=== PATIENT | male | born 1965 | race African-American/Black ===

== ENCOUNTER 2017-07-18 09:00 | Inpatient (IN) | payer BC ==
[~2017-07-18] VITALS: Ht 177.8 cm; Wt 106.6 kg
--- NOTE | ~2017-07-18 | PA ---
Unit #: [id number] #: [id number] Patient: TATIANA FOURNIER [id number] [facility] [address] [place] [address] [id number] MR#: [id number] NAME: TATIANA FOURNIER. ROOM: [facility] Age: 51 Sex: M Admission Date: 07/18/2017 : 1965 Date of Assessment: 07/18/2017 Attending Physician: Isacc Mathur M.D. Admitting Physician: Isacc Mathur M.D. Primary Care Physician: Chelsea Frnaco PSYCHIATRIC ASSESSMENT IDENTIFYING INFORMATION The patient is a 51-year-old male well-known to this physician. He is admitted with positive suicidal ideation. INFORMANT(S) Patient and chart. RELIABILITY Good. CHIEF COMPLAINT None given. HISTORY OF PRESENT ILLNESS The patient is a 51-year-old male well-known to this physician. He has been treated for bipolar disorder and had been fairly stable on a combination of medications including Geodon, Lamictal, Ativan and Ambien. The patient reports that without recent precipitant, he has had worsening of mood culminating in an episode this morning when he had considered jumping from the bridge. He reports no previous suicide attempts or gestures and denies abuse of any psychoactive substances. 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 He denies recent changes in sleep or appetite. PAST PSYCHIATRIC HISTORY As above. FAMILY HISTORY Noncontributory. SOCIAL HISTORY The patient lives with his partner. He reports no use of alcohol, tobacco or street drugs. MEDICAL HISTORY The patient suffers from hypertension, low testosterone and GERD. MEDICATION HISTORY 1. Ambien CR. 2. Protonix. 3. Ativan. 4. Lamictal. 5. Geodon. Unit #: [id number] #: [id number] Patient: TATIANA FOURNIER 6. Sildenafil. 7. Testosterone. 8. Bystolic. ALLERGIES None. MENTAL STATUS EXAM At this time, reveals the patient to be an obese, male appearing his stated age. He is in no apparent physical distress at the time of examination. He is awake, alert, oriented in all spheres. His mood is dysphoric. His affect blunted. Speech is relevant and coherent. There are no gross deficits in memory or cognition noted. Intelligence is judged to be in the average range based on fund of knowledge. The patient is cooperative throughout the interview. He is currently endorsing positive suicidal ideation. He denies homicidal ideation. He denies any psychotic symptoms. His judgement and insight appear to be intact. ASSETS AND LIABILITIES Patient's assets, motivation for change. Liabilities, lack of resources. ADMITTING DIAGNOSES 1. Bipolar disorder, depressed phase. 2. Obesity. 3. Hypertension. 4. Low testosterone. 5. Gastroesophageal reflux disease. PSYCHIATRIC PLAN/TREATMENT GOALS The patient remains hospitalized for safety and stabilization. I will begin a trial of Wellbutrin XL in addition to the patient's previously prescribed medications in hopes of addressing his depressive symptoms. The patient will be transferred to the [address] [place] [address] unit for more appropriate therapeutic milieu. ESTIMATED LENGTH OF STAY Seven days. Dictated by... Isacc Mathur M.D. PATRICIA/rupesh TD: 07/18/2017 15:13 JOB #: [id number] Unit #: [id number] #: [id number] Patient: TATIANA FOURNIER PSYCHIATRIC ASSESSMENT Page 1 of 1 X Isacc Mathur MD PSYCHIATRIC ASSESSMENT
--- NOTE | ~2017-07-18 | HP ---
Unit #: [id number] #: [id number] Patient: GERBER FOURNIER [id number] [place] [address] [id number] MR#: [id number] NAME: GERBER FOURNIER. ROOM: P256 Age: 51 Sex: M Admission Date: 07/18/2017 : 1965 Attending Physician: Isacc Mathur M.D. Admitting Physician: Isacc Mathur M.D. Primary Care Physician: Chelsea Franco HISTORY AND PHYSICAL HISTORY OF PRESENT ILLNESS Gerber is a 51 year old admitted to [address] [place] [address] with depression and verbalizing wanting to hurt himself and reporting visual hallucinations. PAST MEDICAL HISTORY High blood pressure. PAST SURGICAL HISTORY Nothing reported. ALLERGIES No known drug allergies. SOCIAL HISTORY He does not smoke. Drinks beer on occasion and has a history of illicit drug use but denies anything currently. FAMILY HISTORY Medically noncontributory. REVIEW OF SYSTEMS CONSTITUTIONAL: No fever or chills. HEENT: Denies any sore throat, ear pain or runny nose. CARDIOVASCULAR: Denies chest pain, irregular heart rhythm or palpitations. CHEST: Denies shortness of breath or cough. No hemoptysis. GASTROINTESTINAL: Denies nausea, vomiting, diarrhea or chronic constipation. ENDOCRINE: Denies history of increased thirst or urination. No recent significant weight loss or gain. GENITOURINARY: Denies dysuria, frequency, or hematuria. SKIN: Denies any rashes. HEMATOLOGIC: Denies history of increased bleeding or bruising. MUSCULOSKELETAL: Denies any hot, swollen joints. No generalized muscle pain. NEUROLOGIC: Denies problems with vision or speech. No frequent, severe headaches. No numbness, tingling or weakness in any extremities. Denies loss of bladder or bowel control. CURRENT MEDICATIONS 1. Ambien 5 mg q.h.s. 2. Geodon 40 mg b.i.d. 3. Coreg 12.5 mg b.i.d. 4. Lorazepam 1 mg t.i.d. Unit #: [id number] #: [id number] Patient: GERBER FOURNIER 5. Milk of Magnesia p.r.n. 6. Maalox p.r.n. 7. Tylenol p.r.n. 8. Protonix 40 mg daily. 9. Lamictal 200 mg daily. 10. Wellbutrin XL 150 mg daily. PHYSICAL EXAMINATION GENERAL: Alert, well-nourished, in no apparent distress. VITAL SIGNS: Blood pressure 148/92, heart rate 80, respirations 16, temperature 98.6. WEIGHT: 235. HEIGHT: 5 feet 10 inches. SKIN: Warm and dry without rash or lesion. HEENT: Normocephalic. TMs not viewed. Oral and nasal passages clear. Conjunctivae clear. PERRLA. EOMs intact. NECK: Supple without lymphadenopathy or thyromegaly. HEART: Regular rate and rhythm without murmur. LUNGS: Clear. ABDOMEN: Soft, nontender. : Not done. EXTREMITIES: No evidence of cyanosis, clubbing or edema. Moves all without focal deficit. NEUROLOGICAL: Grossly within normal limits. Cranial Nerves: II: Visual ramos are intact. III, IV AND : Extraocular movements are intact. Pupils are equal, round and reactive to light. V: Facial sensation is grossly normal. VII: Facial movements and expression are normal. VIII: Auditory acuity grossly intact. IX, X: Uvula is midline. Phonation is normal. XI: Patient shrugs shoulders and turns head normally. XII: Tongue protrudes in the midline. Sensory and Motor Function: Sensory and motor sensation is grossly normal. Motor: moves all extremities well. Coordination: Gait is normal. Deep Tendon Reflexes: Intact. IMPRESSION Psychiatric admission. RECOMMENDATIONS PSYCHIATRIC: Per psychiatrist. MEDICAL: See no contraindication to participate in facility's activities. MEDICAL PROGNOSIS Good. MEDICAL CONDITION Stable. Dictated by... Arleth Matos P.A.-C. for Aleida Mccarthy/rupesh TD: 07/18/2017 19:42 Unit #: [id number] #: [id number] Patient: GERBER FOURNIER JOB #: [id number] HISTORY AND PHYSICAL Page 1 of 1 X Arleth Matos HISTORY AND PHYSICAL
--- NOTE | ~2017-07-18 | PN ---
Unit #: [id number] #: [id number] Patient: TATIANA FOURNIER [id number] [facility] [address] [place] [address] [id number] MR#: [id number] NAME: TATIANA FOURNIER. ROOM: P256 Age: 51 Sex: M Admission Date: 07/18/2017 : 1965 Attending Physician: Isacc Mathur M.D. Admitting Physician: Isacc Mathur M.D. Primary Care Physician: Chelsea ESPARZA PROGRESS NOTES DATE 07/19/2017 DISCUSSION The patient has been transferred to the [facility]. He is sleeping soundly this morning and does not arouse for interview. Staff reports no management issues, but reports that he continues to endorse sadness and suicidal ideation. Dictated by... Isacc Mathur M.D. CB/suman TD: 07/19/2017 11:34 JOB #: [id number] [facility] PROGRESS NOTES Page 1 of 1 X Isacc Mathur MD PROGRESS NOTE
--- NOTE | ~2017-07-18 | DS ---
Unit #: [id number] #: [id number] Patient: TATIANA FOURINER [id number] [facility] [address] [place] [address] [id number] I MR#: [id number] NAME: TATIANA FOURNIER. ROOM: [facility] Age: 51 Sex: M Admission Date: 07/18/2017 : 1965 Discharge Date: 07/20/2017 Attending Physician: Isacc Mathur M.D. Primary Care Physician: Chelsea Franco DISCHARGE SUMMARY REASON FOR ADMISSION The patient is a 51-year-old male admitted in a depressed stage of bipolar disorder. HOSPITAL COURSE The patient is admitted to the [address] [place] [address] unit initially but was transferred to the [address] [place] [address] unit. He was continued on the previously prescribed medications and Wellbutrin XL 150 mg was added to address the patient's complaints of depressed mood. He tolerated the medication well and showed significant brightening of mood. By 07/20 the patient was in brighter spirits and requested discharge. He was agreeable with a plan for followup in the intensive outpatient program provided by [facility]. Discharge was ordered. DISCHARGE DIAGNOSES 1. Bipolar disorder depressed phase. 2. Hypertension. 3. GERD. DISPOSITION ON DISCHARGE The patient is discharged on the following medications: 1. Wellbutrin XL 150 mg q.a.m. for depression. 2. Coreg 12.5 mg twice daily for hypertension. 3. Testosterone cypionate 200 mg q. four weeks for hypotestosteronism. 4. Geodon 40 mg twice daily for mood stabilization. 5. Lamictal 200 mg once daily for mood stabilization. 6. Ativan 1 mg three times daily for anxiety. 7. Protonix 40 mg daily for GERD. 8. Ambien 5 mg a day chest pain or insomnia. DIET AND ACTIVITY No dietary or physical restrictions were placed upon the patient at the time of discharge. Followup to take place through the auspices of [facility] in the Intensive Outpatient program at [facility]. The patient's prognosis is considered good. Dictated by... Isacc Mathur M.D. Unit #: [id number] #: [id number] Patient: TATIANA FOURNIER PATRICIA/pepe TD: 07/20/2017 20:54 JOB #: [id number] DISCHARGE SUMMARY Page 1 of 1 X Isacc Mathur MD DISCHARGE SUMMARY
[2017-07-19 11:51] LABS: BASOPHIL% 0.5 % (0-2.5); EOSINOPHIL# 0.1 X10e3 (0-0.7); EOSINOPHIL% 1.4 % (0.0-7.0); HEMATOCRIT 50.3 % (38.0-50.0); HEMOGLOBIN 16.9 gm/dL (13.0-16.0); LYMPHOCYTE# 1.6 X10e3 (1.0-3.5); LYMPHOCYTE% 26.9 % (17.0-45.0); MEAN CELL VOLUME 89.5 FL (83-96); MEAN CORPUSCULAR HGB CONC 33.5 g/dL (30-36); MEAN PLATELET VOLUME 9.6 FL (6.5-11.5); MONOCYTE# 0.6 X10e3 (0-1.0); MONOCYTE% 10.2 % (3.0-12.0); NEUTROPHIL# 3.7 X10e3 (1.5-7.1); PLATELET COUNT 180 X10e3 (140-420); RED BLOOD COUNT 5.62 X10e (3.90-5.60); RED CELL DISTRIBUTION WIDTH 14.1 % (11.0-15.5)
[2017-07-19 11:57] LABS: ALBUMIN SERUM 4.1 g/dL (3.5-5.0); BILIRUBIN,TOTAL 1.2 mg/dL (0.2-2.0); BUN/CREATININE RATIO 10.62; CALCIUM SERUM 9.3 mg/dL (8.4-10.2); CREATININE SERUM 1.6 mg/dL (0.6-1.4); GLOM FILT RATE Estimated 56.6 mL/min (>60); POTASSIUM 3.7 mmol/L (3.5-5.1); PROTEIN TOTAL SERUM 7.2 g/dL (6.0-8.3)
[2017-07-19 12:03] LABS: DIFF IND NO
== END 2017-07-20 11:54 | disposition home or self-care (01) | DRG 885 ==
LOC: P1S 11:29 → P2L 11:29 → POF 07-20 10:59 → P1S 07-20 11:02
PROVIDERS: Specialist
DX: F31.30 Bipolar disorder, current episode depressed, mild or moderate severity, unspecified (principal); R45.851 Suicidal ideations; I10 Essential (primary) hypertension; E66.9 Obesity, unspecified; K21.9 Gastro-esophageal reflux disease without esophagitis; E29.1 Testicular hypofunction
CPT/HCPCS: 80053; 85025